=== PATIENT | female | born 1960 | race Caucasian/White ===

== ENCOUNTER 2019-09-05 10:18 | Emergency (ER) | payer MEDICARE ==
[~2019-09-05] VITALS: Ht 154.9 cm; Wt 56.7 kg
[2019-09-05 10:25] VITALS: BP 128/72
[2019-09-05] MEDS ORDERED: ACYC800T PO (10:57)
[2019-09-05] MEDS ORDERED: PRED-220 PO (10:57)
--- NOTE | 2019-09-05 10:58 | PHYS DOC ---
Past Medical History Past Medical History: Other Additional Past Medical Histor: cerebral palsy Past Surgical History: Other Additional Past Surgical Histo: back Alcohol Use: None Drug Use: None Adult General Chief Complaint Chief Complaint: SKIN RASH/ABSCESS HPI HPI Patient is a 59 year old female who presents with rash on her right leg that has been ongoing for a week. The rash is tender to touch and goes all the way up to her perineum. The patient rates her pain as 8 out of 10 in severity. Has not taken anything for this pain before. The patient does report that she had chickenpox as a kid. Review of Systems Review of Systems Constitutional: Denies fever or chills [] Eyes: Denies change in visual acuity, redness, or eye pain [] HENT: Denies nasal congestion or sore throat [] Respiratory: Denies cough or shortness of breath [] Cardiovascular: No additional information not addressed in HPI [] GI: Denies abdominal pain, nausea, vomiting, bloody stools or diarrhea [] : Denies dysuria or hematuria [] Musculoskeletal: Denies back pain or joint pain [] Integument: Reports rash. Neurologic: Denies headache, focal weakness or sensory changes [] Endocrine: Denies polyuria or polydipsia [] Complete systems were reviewed and found to be within normal limits, except as documented in this note. Physical Exam Physical Exam Constitutional: Well developed, well nourished, no acute distress, non-toxic appearance. [] HENT: Normocephalic, atraumatic, bilateral external ears normal, oropharynx moist, no oral exudates, nose normal. [] Eyes: PERRLA, EOMI, conjunctiva normal, no discharge. [] Neck: Normal range of motion, no tenderness, supple, no stridor. [] Skin: vesicular rash on her right leg that extends up to perineum. The rash is only on the right side of perineum. The rash follows sacral dermatome. Back: No tenderness, no CVA tenderness. [] Extremities: No tenderness, no cyanosis, no clubbing, ROM intact, no edema. [] Neurologic: Alert and oriented X 3, normal motor function, normal sensory function, no focal deficits noted. [] Psychologic: Affect normal, judgement normal, mood normal. [] Current Patient Data Vital Signs Vital Signs Date Time Temp Pulse Resp B/P (MAP) Pulse Ox O2 Delivery O2 Flow Rate FiO2 09/05/19 10:25 98.6 95 14 128/72 (90) 98 Room Air 98.6 EKG EKG [] Radiology/Procedures Radiology/Procedures [] Course & Med Decision Making Course & Med Decision Making Pertinent Labs and Imaging studies reviewed. (See chart for details) Appears to have shingles. Will place on antivirals and steroids. Dragon Disclaimer Dragon Disclaimer This electronic medical record was generated, in whole or in part, using a voice recognition dictation system. Departure Departure Impression: Primary Impression: Herpes zoster Disposition: HOME, SELF-CARE Condition: STABLE Referrals: EFRAIN CARSON (PCP) Patient Instructions: Shingles Additional Instructions: Thank you for visiting [facility]. We appreciate you trusting us with your care. If any additional problems come up don't hesitate to return to visit us. Please follow up with your primary care provider so they can plan additional care if needed and know about the problem that you had. If symptoms worsen come back to the Emergency Department. Any concerning symptoms that start such as chest pain, shortness of air, weakness or numbness on one side of the body, running high fevers or any other concerning symptoms return to the ER. Please fill your medications at any pharmacy and follow the prescription instructions. Scripts Prednisone (PREDNISONE ) 10 Mg Tablet 3 TAB PO BID for 7 Days, #42 TAB 0 Refills Prov: LU WINKLER APRN 09/05/19 Acyclovir (ACYCLOVIR) 800 Mg Tablet 1 TAB PO 5XDAY for 10 Days, #50 TAB Prov: LU WINKLER APRN 09/05/19 Problem Qualifiers Primary Impression: Herpes zoster Herpes zoster complications: without complications Qualified Codes: B02.9 - Zoster without complications LU WINKLER APRN Sep 05, 2019 10:58
== END 2019-09-05 11:05 | disposition home or self-care (01) ==
LOC: ER 10:18
DX: B02.9 Zoster without complications (principal)
CPT/HCPCS: 99283

== ENCOUNTER 2020-07-01 14:47 | Emergency (ER) | payer MEDICARE ==
[~2020-07-01] VITALS: Ht 154.9 cm; Wt 54.5 kg
[~2020-07-01 14:47] MED LIST: ACYC800T PO; PRED-220 PO
[2020-07-01] MEDS ORDERED: IV NORMAL SALINE 1000ML BAG 1,000 ML IV SCH (15:53)
[2020-07-01] MEDS ORDERED: ONDANSETRON PF 4 MG/2 ML VIAL. IVP ONE (16:00)
--- NOTE | 2020-07-01 16:10 | PHYS DOC ---
Past Medical History Past Medical History: Other Additional Past Medical Histor: cerebral palsy Past Surgical History: Other Additional Past Surgical Histo: back Smoking Status: Current Every Day Smoker Alcohol Use: None Drug Use: None General Adult EDM: Chief Complaint: NAUSEA/VOMITING/DIARRHA HPI: HPI: Patient is a 59 year old Female who presents with states that on Friday she came home from her sister's house and was feeling slightly nauseated and not feeling well and went and sat on her toilet and fell asleep and fell for off the toilet hitting her head on the tile floor. Patient does have a bruise to her left forehead. There is no abrasion or laceration. She states she did not lose consciousness. She states that she then began having diarrhea, chills, nausea and vomiting. Patient denies shortness of breath, chest pain, fever, abdominal pain, blood in her vomit or stool, syncope, dizziness, headache, neck pain, back pain, dysuria symptoms, cough, numbness or tingling, focal weakness, vision changes. Patient has a history of smoker, cerebral palsy and back pain. Patient and mother in the room are very poor historians. Review of Systems: Review of Systems: Constitutional: + fever or chills. [] Eyes: Denies change in visual acuity. [] HENT: Denies nasal congestion or sore throat. [] Respiratory: Denies cough or shortness of breath. [] Cardiovascular: Denies chest pain or edema. [] GI: Denies abdominal pain. + nausea, +vomiting, denies bloody stools or +diarrhea. [] : Denies dysuria. [] Musculoskeletal: Denies back pain or joint pain. [] Integument: Denies rash. +Bruise to left forehead. [] Neurologic: Denies headache, focal weakness or sensory changes. [] Endocrine: Denies polyuria or polydipsia. [] Lymphatic: Denies swollen glands. [] Psychiatric: Denies depression or anxiety. [] Heart Score: Risk Factors: Risk Factors: DM, Current or recent (<one month) smoker, HTN, HLP, family history of CAD, obesity. Risk Scores: Score 0 - 3: 2.5% MACE over next 6 weeks - Discharge Home Score 4 - 6: 20.3% MACE over next 6 weeks - Admit for Clinical Observation Score 7 - 10: 72.7% MACE over next 6 weeks - Early Invasive Strategies Current Medications: Current Medications Medications (Trade) Dose Ordered Sig/Dee Start Time Stop Time Status Last Admin Dose Admin Ondansetron HCl (Zofran) 4 mg 1X ONCE 07/01/20 16:00 07/01/20 16:01 Sodium Chloride 1,000 ml @ 1,000 mls/hr Q1H 07/01/20 15:53 07/01/20 16:52 Allergies: Allergies: Allergies Coded Allergies Type Severity Reaction Last Updated Verified No Known Drug Allergies 09/05/19 No Physical Exam: PE: Constitutional: Well developed, well nourished, no acute distress, non-toxic appearance. [] HENT: Normocephalic, atraumatic, bilateral external ears normal, oropharynx moist, no oral exudates, nose normal. [] Eyes: PERRLA, EOMI, conjunctiva normal, no discharge. [] Neck: Normal range of motion, no tenderness, supple, no stridor. [] Cardiovascular:Heart rate regular rhythm, no murmur [] Lungs & Thorax: Bilateral breath sounds clear to auscultation [] Abdomen: Bowel sounds normal, soft, no tenderness, no masses, no pulsatile masses. [] Skin: Warm, dry, no erythema, no rash. Bruise to left forehead. [] Back: No tenderness, no CVA tenderness. [] Extremities: No tenderness, no cyanosis, no clubbing, ROM intact, no edema. [] Neurologic: Alert and oriented X 3, normal motor function, normal sensory function, no focal deficits noted. [] Psychologic: Affect normal, judgement normal, mood normal. [] Current Patient Data: Vital Signs: Vital Signs Date Time Temp Pulse Resp B/P (MAP) Pulse Ox O2 Delivery O2 Flow Rate FiO2 07/01/20 15:17 98.3 82 20 140/68 (92) 98 Room Air 98.3 EKG: EK AND READ BY DR MENSAH SINUS RHYTHM AND NO STEMI Radiology/Procedures: Radiology/Procedures: [] Impression: [facility] [address] [place] [address] IMAGING REPORT Signed PATIENT: DEL HODGE ACCOUNT: [id number] : 1960 LOCATION: ER AGE: 59 SEX: F EXAM STATUS: REG ER ORD. PHYSICIAN: LIZ CABRERA APRN REASON: hit head PROCEDURE: CT HEAD AND CERVICAL SPINE WO Exam performed: CT scan of the head and cervical spine without contrast. Date of Service: 07/01/2020 Comparison:None available Clinical History: Patient hit head Technique: Helical acquisitions are obtained from the foramen magnum to the vertex without intravenous administration of contrast. In addition helical acquisitions are obtained through the cervical spine. Sagittal and coronal reformatted images are obtained and reviewed. CT scan head findings: The ventricular system is midline without evidence of dilatation. Normal estevez-white differentiation is maintained. There is no extra axial fluid collection, intraparenchymal hemorrhage or mass lesion. The visualized orbits, paranasal sinuses and the mastoid air cells are clear. The calvarium is intact. Impression: 1. Normal non-contrast CT of the brain. End Impression. CT cervical spine findings: Normal sagittal alignment is preserved. The vertebral body heights and intravertebral disc spaces are maintained. There is no jaz or retrolisthesis. No prevertebral soft tissue swelling is identified. Mild spondylotic changes and degenerative disc disease noted. There are no fractures. No definite lymphadenopathy or masses are seen within the neck. The visualized thyroid and salivary glands appears preserved. Impression: 1. No acute abnormality seen in the CT scan cervical spine. PQRS Compliance Statement: One or more of the following individualized dose reduction techniques were utilized for this examination: 1. Automated exposure control 2. Adjustment of the mA and/or kV according to patient size 3. Use of iterative reconstruction technique End impression Exam performed: One view chest. Indication: Reason: CHILLS, VOMITING / Spl. Instructions: / History: Date of Service: 07/01/2020 3:53 PM Comparison: None available. Single AP upright portable view chest findings: Cardiomediastinal silhouette is within limits of normal. No acute infiltrates, effusion or pneumothorax is detected. The bony structures are normal. Impression: No acute cardiopulmonary process is detected. Electronically signed by: Angela Vences MD (07/01/2020 5:00 PM) [facility] DICTATED and SIGNED BY: ANGELA EVNCES MD DATE: 07/01/201699 [facility] [address] [place] [address] IMAGING REPORT Signed PATIENT: DEL HODGE ACCOUNT: [id number] : 1960 LOCATION: ER AGE: 59 SEX: F EXAM STATUS: REG ER ORD. PHYSICIAN: ILZ CABRERA APRN REASON: VOMITING, DIARRHEA PROCEDURE: CT ABD PELV W/ IV CONTRST ONLY Exam performed: CT scan of the abdomen and pelvis with contrast Indication: Vomiting and diarrhea Date of Service: 07/01/2020. Comparison: None available Technique: Contiguous helical acquisitions are obtained through the abdomen and pelvis during intravenous administration ofIV contrast. In addition sagittal and coronal reformatted images are obtained and reviewed. CT scan abdomen and pelvis findings: The lung bases are clear. Visualized heart is normal. The liver, spleen and pancreas appear normal. Gallbladder is distended. Both adrenal glands and bilateral kidneys appear normal with symmetric excretion of contrast via both kidneys. There is no hydronephrosis or nephrolithiasis The aortanormal in caliber. No retroperitoneal lymphadenopathy is identified. The small bowel loops are nondilated and unremarkable . No bowel related stranding or mesenteric lymphadenopathy seen. The pelvic small bowel loops are nondilated and unremarkable .The urinary bladder is well distended and unremarkable.Uterus is anteverted. No adnexal masses seen.. No pelvic side wall lymphadenopathy or free fluid seen. Bones unremarkable. Impression CT Abdomen and pelvis: 1. No acute findings seen in the abdomen and pelvis. PQRS Compliance Statement: One or more of the following individualized dose reduction techniques were utilized for this examination: 1. Automated exposure control 2. Adjustment of the mA and/or kV according to patient size 3. Use of iterative reconstruction technique Electronically signed by: Angela Vences MD (07/01/2020 5:03 PM) [facility] DICTATED and SIGNED BY: ANGELA VENCES MD DATE: 07/01/201702 Course & Med Decision Making: Course & Med Decision Making Pertinent Labs and Imaging studies reviewed. (See chart for details) See HPI. Abdomen soft and nontender. Skin pink warm and dry. Ambulatory with steady gait. Speaks in full complete sentences. Vital signs within normal limits. No extremity edema. Lungs are clear to auscultation all lobes. She states she has not been around anybody that is COVID positive. There is no focal bony spinal tenderness to cervical spine, thoracic spine, lumbar spine. Full range of motion of her head. No tenderness, deformity, abrasion or lace ration to her face or skull. Patient has had no other vomiting or diarrhea in the ED. Patient is stable with stable vital signs. She is tested for COVID in the ED. I will send her home with Lenny. CT abdomen pelvis shows no acute findings. Chest x-ray shows no acute findings. Blood work is unremarkable. Patient is successfully p.o. challenge. Patient states she is feeling much better. She is discharged home. [] Dragon Disclaimer: Dragon Disclaimer: This electronic medical record was generated, in whole or in part, using a voice recognition dictation system. Departure Departure Impression: Primary Impression: Nausea & vomiting Qualified Codes: R11.2 - Nausea with vomiting, unspecified Additional Impressions: Head injury Qualified Codes: S09.90XA - Unspecified injury of head, initial encounter Person under investigation for COVID-19 Disposition: HOME, SELF-CARE Condition: STABLE Referrals: EFRAIN CARSON (PCP) NICO CANADA MD Patient Instructions: Head Injury, Adult, Nausea and Vomiting Additional Instructions: Drink plenty of fluids. Slowly advance your diet. Follow-up with primary care physician if needed. I also referred you to a GI doctor. You have been tested for or diagnosed with COVID-19. It is an infection caused by a new type of coronavirus. COVID-19 will cause cold-like or mild flu symptoms in most. It can cause more severe symptoms like problems breathing in some. There is no treatment for COVID-19. The body will clear the infection over time. Self-care will help to ease discomfort. Steps to Take: Self-Care Rest as needed. Healthy habits may help you feel better. Steps include: Choose healthy foods including fruits and vegetables. Drink water throughout the day. Get plenty of sleep each night. If you smoke, try to quit. It may ease breathing. Avoid alcohol. Keep Others Healthy The virus can spread to others. Droplets are released every time you sneeze or cough. The droplets can get into the mouth, nose, or eyes of people near you and lead to infection. To lower the chances of spreading COVID-19 to others: Stay at home until your doctor has said it is safe to leave. If you tested positive this will mean staying isolated until both of the following are true: At least 7 days have passed since the start of illness. You are free of fever for at least 72 hours without the use of medicine. During this time: - Avoid public areas, events, or transportation. Do not return to work or school until your doctor has said it is safe to do so. - Call ahead if you need to go to a medical center. Let them know you may have COVID-19. It will help them guide you where to go. They may also ask you to wear a facemask when you come to the office. - If you call for emergency medical services, let them know you may have COVID- 19. While at home: - Try to avoid close contact with others. Stay about 6 feet away. - If possible, spend most of your time in a separate room from others. - Use a face mask if you will be in close contact with others such as sharing a room or vehicle. - Have someone wipe down common surfaces in the home. Use household drosser every day on areas like doorknobs, counters, or sinks. - Cough or sneeze into a tissue. Throw the tissue away right after use. If a tissue is not available, cough or sneeze into your elbow. - Wash your hands often. Wash them after sneezing or coughing. Use soap and water and wash for at least 20 seconds. Alcohol based hand paper cleaner can be used if soap and water is not available. - Do not prepare food for others. Avoid sharing personal items like forks, spoons, or toothbrushes. - Avoid close contact with pets while you are sick. There is no evidence of the virus passing to pets. This is a safety step until more is known about this virus. Isolation can be frustrating. Social interaction can help. Keep in touch with friends and family through phone and tech options. You can still interact with others in your home, just keep a safe distance of about 6 feet. Follow-up: Your doctors office will check in with you to see if there are any changes in your health. You may be asked to keep track of symptoms to share with them. They will also let you know when you are clear to be in public again. Problems to Look Out For: Contact your doctor if your recovery is not going as you expect. Get emergency care if you have problems such as: - Trouble breathing - Nonstop chest pain or pressure - Changes in awareness, confusion, or problems waking - Lips or face have bluish color - Worsening of symptoms If you think you have an emergency, call for emergency medical services right away. [facility] [place] Scripts Ondansetron (ONDANSETRON ODT) 4 Mg Tab.rapdis 1 TAB PO PRN Q6-8HRS, #16 TAB Prov: LIZ CABRERA APRN 07/01/20 LIZ CABRERA APRN Jul 01, 2020 16:10
[2020-07-01 16:20] LABS: BASO # 0.1 x10^3/uL (0.0-0.2); BASO % 1 % (0-3); EOS # 0.1 x10^3/uL (0.0-0.7); EOS % 2 % (0-3); HEMATOCRIT 40.1 % (36.0-47.0); HEMOGLOBIN 13.7 g/dL (12.0-15.5); LYMPH # 1.6 x10^3/uL (1.0-4.8); LYMPH % 23 % (24-48); MEAN CORPUSCULAR HEMOGLOBIN 31 pg (25-35); MEAN CORPUSCULAR HGB CONC 34 g/dL (31-37); MEAN CORPUSCULAR VOLUME 91 fL (79-100); MONO # 0.8 x10^3/uL (0.0-1.1); MONO % 12 % (0-9); NEUT # 4.3 x10^3/uL (1.8-7.7); NEUT % 62 % (31-73); PLATELET COUNT 277 x10^3/uL (140-400); RED BLOOD COUNT 4.39 x10^6/uL (3.50-5.40); RED CELL DISTRIBUTION WIDTH 15.2 % (11.5-14.5); WHITE BLOOD COUNT 6.9 x10^3/uL (4.0-11.0)
[2020-07-01 16:35] LABS: CALCIUM 9.3 mg/dL (8.5-10.1); GFR 56.9; POTASSIUM 3.3 mmol/L (3.5-5.1); PROTHROMBIN TIME PATIENT 13.2 SEC (11.7-14.0)
[2020-07-01 16:40] LABS: ALBUMIN/GLOBULIN RATIO 1.2 (1.0-1.7); TOTAL BILIRUBIN 0.5 mg/dL (0.2-1.0); TOTAL PROTEIN 7.4 g/dL (6.4-8.2)
[2020-07-01] MEDS ORDERED: IOHEXOL 300 MG/ML 100ML VIAL. IV ONE (16:45)
[2020-07-01] MEDS ORDERED: CONTRAST GIVEN. MC PRN (16:45)
--- NOTE | 2020-07-01 17:03 | RAD ---
Exam performed: CT scan of the head and cervical spine without contrast. Date of Service: 07/01/2020 Comparison:None available Clinical History: Patient hit head Technique: Helical acquisitions are obtained from the foramen magnum to the vertex without intravenous administration of contrast. In addition helical acquisitions are obtained through the cervical spine. Sagittal and coronal reformatted images are obtained and reviewed. CT scan head findings: The ventricular system is midline without evidence of dilatation. Normal estevez-white differentiation is maintained. There is no extra axial fluid collection, intraparenchymal hemorrhage or mass lesion. The visualized orbits, paranasal sinuses and the mastoid air cells are clear. The calvarium is intact. Impression: 1. Normal non-contrast CT of the brain. End Impression. CT cervical spine findings: Normal sagittal alignment is preserved. The vertebral body heights and intravertebral disc spaces are maintained. There is no jaz or retrolisthesis. No prevertebral soft tissue swelling is identified. Mild spondylotic changes and degenerative disc disease noted. There are no fractures. No definite lymphadenopathy or masses are seen within the neck. The visualized thyroid and salivary glands appears preserved. Impression: 1. No acute abnormality seen in the CT scan cervical spine. PQRS Compliance Statement: One or more of the following individualized dose reduction techniques were utilized for this examination: 1. Automated exposure control 2. Adjustment of the mA and/or kV according to patient size 3. Use of iterative reconstruction technique End impression Exam performed: One view chest. Indication: Reason: CHILLS, VOMITING / Spl. Instructions: / History: Date of Service: 07/01/2020 3:53 PM Comparison: None available. Single AP upright portable view chest findings: Cardiomediastinal silhouette is within limits of normal. No acute infiltrates, effusion or pneumothorax is detected. The bony structures are normal. Impression: No acute cardiopulmonary process is detected. Electronically signed by: Angela Vences MD (07/01/2020 5:00 PM) [facility]
--- NOTE | 2020-07-01 17:05 | RAD ---
Exam performed: CT scan of the abdomen and pelvis with contrast Indication: Vomiting and diarrhea Date of Service: 07/01/2020. Comparison: None available Technique: Contiguous helical acquisitions are obtained through the abdomen and pelvis during intravenous administration ofIV contrast. In addition sagittal and coronal reformatted images are obtained and reviewed. CT scan abdomen and pelvis findings: The lung bases are clear. Visualized heart is normal. The liver, spleen and pancreas appear normal. Gallbladder is distended. Both adrenal glands and bilateral kidneys appear normal with symmetric excretion of contrast via both kidneys. There is no hydronephrosis or nephrolithiasis The aortanormal in caliber. No retroperitoneal lymphadenopathy is identified. The small bowel loops are nondilated and unremarkable . No bowel related stranding or mesenteric lymphadenopathy seen. The pelvic small bowel loops are nondilated and unremarkable .The urinary bladder is well distended and unremarkable.Uterus is anteverted. No adnexal masses seen.. No pelvic side wall lymphadenopathy or free fluid seen. Bones unremarkable. Impression CT Abdomen and pelvis: 1. No acute findings seen in the abdomen and pelvis. PQRS Compliance Statement: One or more of the following individualized dose reduction techniques were utilized for this examination: 1. Automated exposure control 2. Adjustment of the mA and/or kV according to patient size 3. Use of iterative reconstruction technique Electronically signed by: Angela Vences MD (07/01/2020 5:03 PM) [facility]
[2020-07-01] MEDS ORDERED: ONDA4TAB12 PO (18:18)
--- NOTE | 2020-07-01 18:21 | NUR ---
Pt given small amount of water to drink.
[2020-07-01 18:35] LABS: BILIRUBIN,URINE NEGATIVE (NEG); CLARITY,URINE CLEAR; COLOR,URINE YELLOW; NITRITE,URINE NEGATIVE (NEG); PROTEIN,URINE NEGATIVE (NEG-TRACE)
[2020-07-01 18:51] LABS: BACTERIA,URINE FEW /HPF (0-FEW); RBC,URINE RARE /HPF (0-2)
[2020-07-01 18:56] VITALS: BP 153/82
--- NOTE | 2020-07-02 07:41 | EKG ---
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
== END 2020-07-01 19:00 | disposition home or self-care (01) ==
LOC: ER 14:47
DX: S00.83XA Contusion of other part of head, initial encounter (principal); Z20.828 Contact with and (suspected) exposure to other viral communicable diseases; R11.2 Nausea with vomiting, unspecified; R19.7 Diarrhea, unspecified; F17.200 Nicotine dependence, unspecified, uncomplicated; Z98.890 Other specified postprocedural states; W18.09XA Striking against other object with subsequent fall, initial encounter; Y93.89 Activity, other specified; Y92.89 Other specified places as the place of occurrence of the external cause; Y99.8 Other external cause status
CPT/HCPCS: 36415; 70450; 71045; 72125; 74177; 80053; 81001; 83690; 84484; 85025; 85610; 87086; 93005; 96361; 96374; 99285; J2405; J7030; Q9967; U0003